=== PATIENT | male | born 1990 | race Caucasian/White ===

== ENCOUNTER 2017-08-12 16:50 | Emergency (ER) | payer BC ==
[2017-08-12 16:56] VITALS: BP 124/86
--- NOTE | 2017-08-12 17:17 | RAD ---
INDICATION: Shortness of breath, history of pneumothorax. COMPARISON: Comparison is made with prior chest x-ray study from November 08, 2016. TECHNIQUE: Dual-energy PA and lateral views of the chest were obtained. FINDINGS: The heart is within normal limits in size. Mediastinal and hilar contours appear within normal limits. The lungs are clear. No pleural effusion or pneumothorax is seen. Surgical sutures are noted at both lung apices. IMPRESSION: POSTSURGICAL CHANGES, NO EVIDENCE FOR ACUTE FINDING.
--- NOTE | 2017-08-15 22:39 | UC ---
Respiratory Complaint HPI - HPI Summary HPI Summary: 26 YEAR OLD MALE WITH A HISTORY OF PNEUMOTHORAX PRESENTS WITH SEVERE BACK PAIN. - History of Current Complaint Chief Complaint: UCRespiratory Stated Complaint: SHORTNESS OF BREATH/HX PNEUMOTHORAX Time Seen by Provider: 08/12/17 16:57 Hx Obtained From: Patient Onset/Duration: Sudden Onset Timing: Constant Severity Initially: Moderate Severity Currently: Moderate Pain Intensity: 0 Pain Scale Used: 0-10 Numeric - 6 - Allergies/Home Medications Allergies/Adverse Reactions: Allergies Allergy/AdvReac Type Severity Reaction Status Date / Time Cefaclor [From Ceclor] Allergy Severe Anaphylatic Verified 08/12/17 16:56 Shock Tree Nuts Allergy Vomiting Verified 08/12/17 16:56 sesame, poppy and sunflower Allergy Vomiting Uncoded 08/12/17 16:56 seeds PMH/Surg Hx/FS Hx/Imm Hx Previously Healthy: Yes - Surgical History Surgical History: Yes Surgery Procedure, Year, and Place: pneumothorax surgery X3; - Family History Known Family History: Positive: Other - FATHER & MOTHER SINUSITIS - Social History Alcohol Use: None Substance Use Type: None Smoking Status (MU): Never Smoked Tobacco - Immunization History Most Recent Influenza Vaccination: no Review of Systems Constitutional: Negative Skin: Negative Eyes: Negative ENT: Negative Respiratory: Shortness Of Breath Cardiovascular: Negative Gastrointestinal: Negative Genitourinary: Negative Motor: Negative Neurovascular: Negative Musculoskeletal: Negative Neurological: Negative Psychological: Negative All Other Systems Reviewed And Are Negative: Yes Physical Exam Triage Information Reviewed: Yes Vital Signs: Initial Vital Signs Temp 37.2 C 08/12/17 16:51 Pulse 77 08/12/17 16:51 Resp 15 08/12/17 16:51 BP 124/86 08/12/17 16:51 Pulse Ox 100 08/12/17 16:51 Vital Signs Reviewed: Yes Eye Exam: Normal ENT Exam: Normal Dental Exam: Normal Neck exam: Normal Neck: Positive: 1 Respiratory: Positive: Decreased breath sounds Cardiovascular Exam: Normal Abdominal Exam: Normal Musculoskeletal Exam: Normal Neurological Exam: Normal Psychological Exam: Normal Skin Exam: Normal UC Diagnostic Evaluation - Laboratory O2 Sat by Pulse Oximetry: 100 Respiratory Course/Dx - Differential Dx/Diagnosis Provider Diagnoses: BACK PAIN. SHORT OF BREATH Discharge - Discharge Plan Condition: Stable Disposition: HOME Patient Education Materials: Spontaneous Pneumothorax (ED) Referrals: Ceferino Ocampo MD [Primary Care Provider] -
== END 2017-08-12 17:29 | disposition home or self-care (01) ==
LOC: UCCORT 16:50
DX: M54.9 Dorsalgia, unspecified (principal); R06.02 Shortness of breath; Z87.09 Personal history of other diseases of the respiratory system
CPT/HCPCS: 71020; 99211; G0463